=== PATIENT | female | born 1940 | race Caucasian/White ===

== ENCOUNTER → 2017-04-15 19:17 | Outpatient (CLI) | payer MEDICARE ==
[2013-11-03 14:27] VITALS: BMI 29.9
[~2017-04-15 19:17] MED LIST: ANASTROZOLE1 MG PO; ANTIVERT25 MG PO; ASPIRIN325 MG PO; BACTRIM DS TABL1 TAB PO; COLACE100 MG PO; COUMADIN5 MG PO; DEXTROSE 50%/WA50 ML IV; DULCOLAX10 MG/SUPP RC; GLUCAGON1 MG/KIT IM; GLUCAGON1 MG/KIT SQ; HYDROCHLOROTH12.5 M1 PO; INSTA-GLUCOSE31 GM PO; LANTUS SOL100 UNIT/1 SQ; LIPITOR20 MG PO; LISINOPRIL5 MG PO; MILK OF MAGNESI30 ML PO; MIRALAX17 GM PO; MS CONTIN30 MG PO; NARCAN INJ0.4 MG/ML IV; NEURONTIN 300300 MG PO; ONDANSETRON4 MG/2 M3 PO; OXYCONTIN10 MG PO; PERCOCET 10/3251 TA1 PO; SALINE FLUSH10 ML IJ; SENOKOT-S TABLE1 TAB PO; XARELTO10 MG PO; ZOFRAN ODT4 MG/UDTAB PO; ZOFRAN4 MG PO
== END | disposition home or self-care (01) ==
LOC: D.LABREF 19:17
DX: Z12.4 Encounter for screening for malignant neoplasm of cervix (principal)

== ENCOUNTER → 2017-05-27 16:45 | Outpatient (CLI) | payer MEDICARE ==
[2013-11-03 14:27] VITALS: BMI 29.9
== END | disposition home or self-care (01) ==
LOC: D.MAMMO 11:00
DX: C50.919 Malignant neoplasm of unspecified site of unspecified female breast (principal)

== ENCOUNTER → 2018-06-09 20:36 | Outpatient (CLI) | payer MEDICARE ==
[2013-11-03 14:27] VITALS: BMI 29.9
== END | disposition home or self-care (01) ==
LOC: D.MAMMO 05-28 09:30
DX: Z85.3 Personal history of malignant neoplasm of breast (principal)

== ENCOUNTER 2019-08-10 08:00 | Outpatient (CLI) | payer MEDICARE ==
[2013-11-03 14:27] VITALS: BMI 29.9
== END 2019-08-10 23:59 | disposition home or self-care (01) ==
LOC: D.MAMMO 08:00
PROVIDERS: ATTEND Family Medicine
DX: Z12.31 Encounter for screening mammogram for malignant neoplasm of breast (principal)